=== PATIENT | male | born 1975 | race Hispanic/Latino ===

== ENCOUNTER 2022-04-04 11:15 | Emergency (ER) | payer OTHER ==
[~2022-04-04] VITALS: Ht 177.8 cm; Wt 123.4 kg
[~2022-04-04 11:15] MED LIST: ARIP2TAB20 PO; BUSP5TAB3 PO; LEVO-70 PO; MONT-39 PO; SERT-439 PO
[2022-04-04 12:42] LABS: BASOPHILS % (AUTO) 0.4 % (0.0-5.0); EOSINOPHILS % (AUTO) 0.1 % (0.0-8.0); HEMATOCRIT 45.8 % (42-54); LYMPHOCYTES % (AUTO) 12.3 % (21.0-51.0); MEAN CORPUSCULAR HEMOGLOBIN 31.6 pg (27.0-33.0); MEAN CORPUSCULAR HGB CONC 35.6 g/dL (32.0-36.0); MEAN CORPUSCULAR VOLUME 88.8 fL (79-99); MONOCYTES % (AUTO) 2.6 % (3.0-13.0); NEUTROPHILS % (AUTO) 84.3 % (40.0-77.0); PLATELET COUNT (AUTO) 250 K/uL (130-400); RED BLOOD CELL COUNT(AUTO) 5.16 MIL/uL (4.50-6.20); RED CELL DISTRIBUTION WIDTH 11.9 % (11.0-15.5); WHITE BLOOD COUNT (AUTO) 9.3 K/uL (4.8-10.8)
[2022-04-04 12:52] LABS: CREATININE 1.1 mg/dL (0.5-1.5)
[2022-04-04 12:56] LABS: ALBUMIN 4.1 g/dL (3.5-5.0); TOTAL PROTEIN, SERUM 8.1 g/dL (6.0-8.3)
[2022-04-04 13:09] LABS: APPEARANCE,URINE CLOUDY (CLEAR); BILIRUBIN,URINE NEGATIVE (NEGATIVE); COLOR,URINE LIGHT-YELLOW (YELLOW); GLUCOSE, URINE (UA) NEGATIVE (NEGATIVE); KETONES,URINE NEGATIVE (NEGATIVE); LEUKOCYTE ESTERASE ,URINE NEGATIVE Leu/uL (NEGATIVE); NITRATE,URINE NEGATIVE (NEGATIVE); OCCULT BLOOD,URINE NEGATIVE (NEGATIVE); PROTEIN,URINE NEGATIVE (NEGATIVE); UROBILINOGEN,URINE 0.2 mg/dL (0.2-1.0)
[2022-04-04 13:16] LABS: AMPHET/METH SCREEN,URINE NEGATIVE (NEGATIVE); BARBITURATE SCREEN, URINE NEGATIVE (NEGATIVE); BENZODIAZEPINES SCREEN,URINE NEGATIVE (NEGATIVE); CANNABINOID SCREEN,URINE NEGATIVE (NEGATIVE); COCAINE SCREEN,URINE NEGATIVE (NEGATIVE); PHENCYCLIDINE SCREEN,URINE NEGATIVE (NEGATIVE)
[2022-04-04 13:23] LABS: MUCUS,URINE RARE LPF (None Seen); SQUAMOUS EPITHELIAL CELL,UR RARE /HPF (0-2); WBC,URINE 0-1 /HPF (0-1)
[2022-04-04] MEDS ORDERED: 0.9%NACL 1000ML 1,000 ML IV ONE (13:30)
[2022-04-04] MEDS ORDERED: ONDANSETRON 4MG INJ IVP ONE (13:30)
[2022-04-04] MEDS ORDERED: KETOROLAC 30MG VIAL (30MG/ML) IVP ONE (13:30)
[2022-04-04] MEDS ORDERED: IOHEXOL 350 MG/ML 100ML INFUS..BTL IV ONE (16:07)
[2022-04-04] MEDS ORDERED: IBUP-2077 PO (19:29)
[2022-04-04] MEDS ORDERED: ONDA4TAB10 PO (19:29)
[2022-04-04 19:34] VITALS: BP 106/52
== END 2022-04-04 19:56 | disposition home or self-care (01) ==
LOC: EDH 11:15
DX: N20.0 Calculus of kidney (principal); R11.2 Nausea with vomiting, unspecified; Z79.899 Other long term (current) drug therapy
CPT/HCPCS: 99285; 74174; 96374; 71275; 96361; 76770; 96375; 80053; 80305; 83690; 85025; 85378; 36415; 81001; J7030; J2405; J1885; Q9967

== ENCOUNTER 2023-09-05 16:39 | Emergency (ER) | payer OTHER ==
[~2023-09-05] VITALS: Ht 177.8 cm; Wt 124.7 kg
[~2023-09-05 16:39] MED LIST changes: +IBUP-2077 PO; +ONDA4TAB10 PO
[2023-09-05] MEDS: ACETAMINOPHEN 500 MG TABLET PO ONE (17:26)
[2023-09-05] MEDS: TETANUS/DIPHTHERIA TOXOID [ADULT] 0.5 ML VIAL IM ONE (17:28)
[2023-09-05] MEDS ORDERED: ACET-66 PO (18:23)
[2023-09-05] MEDS ORDERED: MUPI22OI2 TP (18:23)
[2023-09-05] MEDS ORDERED: IBUP-2070 PO (18:23)
[2023-09-05 18:39] VITALS: BP 142/84; PULSE 78; RESP 18; O2SAT 97
== END 2023-09-05 18:39 | disposition home or self-care (01) ==
LOC: EDH 16:39
DX: S01.01XA Laceration without foreign body of scalp, initial encounter (principal); F41.9 Anxiety disorder, unspecified; F32.A Depression, unspecified; Z79.899 Other long term (current) drug therapy; W22.8XXA Striking against or struck by other objects, initial encounter; Y93.89 Activity, other specified; Y92.89 Other specified places as the place of occurrence of the external cause; Y99.8 Other external cause status
CPT/HCPCS: 70450; 90471; 90714

== ENCOUNTER 2024-11-26 21:16 | Emergency (ER) | payer OTHER ==
[~2024-11-26] VITALS: Ht 177.8 cm; Wt 124.7 kg
[~2024-11-26 21:16] MED LIST changes: +ACET-66 PO; -ARIP2TAB20 PO; +ARIP2TAB66 PO; +IBUP-2070 PO; +MUPI22OI2 TP; +ONDA-243 PO; -ONDA4TAB10 PO
--- NOTE | 2024-11-26 22:05 | ERN ---
General Chief Complaint: Lower Extremity Pain/Injury Stated Complaint: C/O PAIN TO RT LEG Time Seen by MD: 21:48 Source: patient History of Present Illness Initial Comments Patient was jumping up and down and then he started to notice some pain in his posterior right knee. Right in the middle. He also reports some numbness and tingling on his posterior thigh and posterior calf. He has already been to another emergency room where they did x-rays and said he was normal. So he comes here for a CT scan or an MRI scan. He has full mobility of his knee thigh leg toes feet. It is has pain and difficulty walking. Timing/Duration: 24 hours Allergies: Coded Allergies: No Known Drug Allergies (Unverified Allergy, Unknown, 03/31/22) Home Meds Active Scripts Mupirocin (Mupirocin Ointment) 2 % Oint, 1 APPL TP BID for 10 Days, #30 G Prov:ELKE VILLAGRAN 09/05/23 Ibuprofen (Ibuprofen) 600 Mg Tablet, 600 MG PO Q6H PRN for PAIN, #15 TAB Prov:ELKE VILLAGRAN 09/05/23 Acetaminophen (Acetaminophen) 500 Mg Tablet, 500 MG PO Q4PRN for 5 Days, #15 TAB Prov:ELKE VILLAGRAN 09/05/23 Ondansetron (Ondansetron Odt) 4 Mg Tab.rapdis, 4 MG PO TID PRN for NAUSEA, #15 TAB 0 Refills Prov:DAVID RODRIGUEZ MD 04/04/22 Ibuprofen (Ibuprofen 800 mg Tab) 800 Mg Tab, 800 MG PO Q6H PRN for PAIN, #30 TAB 0 Refills Prov:DAVID RODRIGUEZ MD 04/04/22 Levofloxacin (Levofloxacin) 500 Mg Tablet, 500 MG PO DAILY, #7 TAB 0 Refills Prov:JESSEE WHYTE 04/02/22 Reported Medications Aripiprazole (Aripiprazole) 2 Mg Tablet, 2 MG PO HS, TAB 03/31/22 Buspirone HCl (Buspirone HCl) 5 Mg Tablet, 5 MG PO HS, TAB 03/31/22 Sertraline HCl (Sertraline HCl) 50 Mg Tablet, 50 MG PO HS, TAB 03/31/22 Montelukast Sodium (Montelukast Sodium) 10 Mg Tablet, 10 MG PO DAILY, TAB 03/31/22 Past Medical History Past Medical History: No Pertinent History Past Surgical History: None Social History Social History: Lives with family, Other ROS Dictation Review of systems are otherwise negative. Physical Exam Extremities: (+) normal range of motion, (+) normal inspection, (+) normal capillary refill Extremities Comment I really can not detect any swelling in the posterior knee. The anterior and posterior drawer signs are negative. Medial and lateral collateral ligaments are both intact. Results Laboratory and Microbiology Lab and Micro Result Laboratory Tests Test 11/26/24 22:44 Sodium Level 140 mmol/L (136-145) Potassium Level 3.9 mmol/L (3.5-5.1) Chloride Level 104 mmol/L (101-111) Carbon Dioxide Level 27 mmol/L (21-32) Blood Urea Nitrogen 19 mg/dL (7-18) H Creatinine 1.2 mg/dL (0.5-1.3) Glomerular Filtration Rate Calc 75 mL/min (>90) Random Glucose 181 mg/dL (70-105) H Total Calcium 8.6 mg/dL (8.5-10.1) MDM I will get a CT scan of the patient's right lower extremity with IV contrast. Patient may have a Jauregui's cyst. CT scan of the patient's right knee thigh calf is negative for any obvious swelling or aneurysms. Patient most likely has a muscle injury possibly tendon injury. ED Course Orders Procedure Category Date Status Time Basic Metabolic Panel LAB 11/26/24 Complete 22:05 Ct Low Ext W/Contrast CT 11/26/24 Taken 22:05 Iohexol (Omnipaque) PHA 11/26/24 Complete 23:56 Current Medications Medications (Trade) Dose Ordered Sig/Kris Route PRN Reason Start Time Stop Time Status Last Admin Dose Admin Iohexol (Omnipaque) 35,000 mg STK-MED ONCE IV 11/26/24 23:56 11/27/24 00:01 DC Vital Signs Date Time Temp Pulse Resp B/P (MAP) Pulse Ox O2 Delivery O2 Flow Rate FiO2 11/26/24 23:36 98.8 80 18 138/81 98 Room Air* 0 21 11/26/24 21:17 98.2 86 20 130/78 95 Room Air DX & DISP Disposition: Discharge Departure Impression: Primary Impression: Acute knee pain Condition: Stable Additional Instructions: Patient's right knee CT scan appears normal to me. I do not see any cysts or any vascular aneurysms. Treatment would be conservative care with elevation rest icing it. Please see your family care doctor about getting an MRI if you want to further pursue the cause of this injury. It it should get better on its own with good care. Please follow-up with your primary care physician if you find yourself unable to walk at all on to your right lower extremity. The best treatment for pain would be Motrin and Tylenol. Referrals: MELY CARBAJAL MD (PCP) WALE BLAKE MD November 26, 2024 22:05
[2024-11-26 23:01] LABS: CREATININE 1.2 mg/dL (0.5-1.3); POTASSIUM 3.9 mmol/L (3.5-5.1)
--- NOTE | 2024-11-26 23:36 | NUR ---
PT CARE ASSUMED AT THIS TIME
[2024-11-26] MEDS ORDERED: IOHEXOL 350 MG/ML 100ML INFUS..BTL IV ONE (23:56)
--- NOTE | 2024-11-27 00:27 | HMCIMG ---
CT LOW EXT W/CONTRAST HISTORY: Knee pain COMPARISON: None TECHNIQUE: Multiple sequential axial images of the right knee were obtained including post processing sagittal and coronal reconstruction images. Patient was given 100 cc of Omnipaque through intravenous route. FINDINGS: There is moderate suprapatellar joint effusion. No acute displaced fracture or location is seen. Evaluation of Jauregui's cyst is limited with CT. No definite large Jauregui's cyst is seen. Clinical correlation is recommended. Evaluation for ligaments, menisci and tendons are also limited. IMPRESSION: 1. No fracture is seen. Suprapatella joint effusion. CT was performed with one or more following dose reduction techniques: automated exposure control, adjustment of the mA and kv according to patient's size, or use of a iterative reconstruction technique.
[2024-11-27 01:25] VITALS: BP 150/83; PULSE 71; RESP 18; TEMP 98.4; O2SAT 97
== END 2024-11-27 01:26 | disposition home or self-care (01) ==
LOC: EDH 21:16
DX: M25.561 Pain in right knee (principal); Z79.899 Other long term (current) drug therapy
CPT/HCPCS: 99285; 73701; 80048; 36415; Q9967